=== PATIENT | male | born 1980 | race Caucasian/White ===

== ENCOUNTER 2021-12-11 10:38 | Emergency (ER) | payer SELFPAY ==
--- NOTE | 2021-12-11 10:41 | XR_ITS ---
WS: [id number] XR shoulder LT min 2V* [id number] REASON FOR EXAM: pain FINDINGS: No fracture or focal bone lesion. There is mild malalignment of the acromioclavicular joint. If there has been no recent trauma this ma y be the result of previous low-grade AC separation. The glenohumeral joint is not well demonstrated ( shoulder not well positioned ) on this examination but there does not appear to be anterior dislocation. Posterior dislocation cannot readily excluded i n the appropriate clinical setting. No soft tissue abnormality. XR/XR shoulder LT min 2V* [id number] IMPRESSION: AC joint abnormality as above. No definite acute abnormality of the glenohumeral joint. If there has been acut e or subacute trauma, and clinically warranted, additional imaging would be nee ded to evaluate for posterior dislocation. Axillary or Y-view as needed.
[2021-12-11 10:47] VITALS: BP 145/96; PULSE 67; RESP 16; TEMP 36.3; O2SAT 98; BMI 22.1
[2021-12-11 11:00] VITALS: BP 145/96; PULSE 67; RESP 16; O2SAT 98
--- NOTE | 2021-12-11 11:21 | ED_ITS ---
HPI - Extremity Problem General: Chief complaint: Extremity Problem,Nontraumatic Stated complaint: L shoulder pain Time Seen by Provider: 12/11/21 10:41 Source: patient Mode of arrival: ambulatory Limitations: no limitations History of Present Illness: -year-old male presents emergency room with complaint of left shoulder pain he has a manual labor job he thought he strained his shoulder yesterday when he was still able to move and use it without difficulty this morning woke up with it was much more severe he can move shoulder most range of motion of the exception of abduction demonstrates 1 to ge t the past about 40 to 45 degrees he starts to have significant discomfort. He is not having pain radiating down into the tips of his fingers he does have pain over the trapezius muscle towards the neck. no previous neck or shoulder injury. MD Complaint: joint pain Onset (ago): hour(s) Pain Consistency: constant Location: left and upper extremity (Shoulder) Quality: sharp Radiation: proximal Relieving factors: immobilization Exacerbating factors: range of motion and exertion Associated symptoms: Deny no associated symptoms, arthralgias, chest pain, fever(s), myalgias, rash, short of breath or other Review of Systems Const: Denies: fever(s), chills, body aches, fatigue or malaise Card: Denies: chest pain, palpitations or irregular heart rhythm Resp: Denies: dyspnea, productive cough or non-productive cough GI: Denies: abdominal pain, nausea, vomiting, diarrhea or constipation : Denies: flank pain or dysuria Skin/Breast: Denies: rash [facility] ED PFSH: Medical History (Updated 12/11/21 @ 13:08 by Jeff Gross DO) No significant past medical history Surgical History (Updated 12/11/21 @ 13:08 by Jeff Gross DO) No significant past surgical history Physical Exam Const: COMMON NORMALS: no acute distress GENERAL APPEARANCE: cooperative and comfortable ORIENTATION/CONSCIOUSNESS: Yes awake, Yes oriented to person, Yes oriented to place and Yes oriented to time HENMT: COMMON NORMALS: normocephalic, atraumatic and hearing grossly normal bilaterally HEAD & SCALP: normocephalic and atraumatic Neck/C-Spine: COMMON NORMALS: no JVD Resp: COMMON NORMALS: normal respiratory effort, No retractions, No use of accessory muscles and clear to auscultation bilaterally AUSCULTATION: clear to auscultation bilaterally Cardio: COMMON NORMALS: no JVD, regular rate, regular rhythm and No murmurs present (Cardio) RATE: regular rate RHYTHM: regular rhythm Extremity: COMMON NORMALS: normal to inspection, capillary refill normal, no clubbing, cyanosis or edema, no calf tenderness and no pedal edema OTHER: Limited abduction left shoulder internal and external rotation of the also significant for pain with external rotation of the left shoulder neurovascular intact. Neuro: SENSORIUM/ORIENTATION: Yes oriented to person, Yes oriented to place and Yes oriented to time Skin: COMMON NORMALS: no rashes or lesions noted GENERAL SKIN EXAM: no rashes or lesions noted Course Vital Signs: Vital signs: Vital Signs Temperature 97.4 F L 12/11/21 10:47 Pulse Rate 67 12/11/21 11:00 Respiratory Rate 16 12/11/21 11:00 Blood Pressure 145/96 12/11/21 11:00 Pulse Oximetry 98 12/11/21 11:00 MDM - Extremity (Nontraumatic) Medical Decision Making Appears he has a musculoskeletal strain most likely the rotator cuff. Plain films are unremarkable we will discharge patient in a sling anti-inflammatories as needed and referral to Ortho for further evaluation avoid using the left arm at work until released by Ortho. Medical Records I reviewed the patient's medical records. Lab Data I reviewed the patient's lab results. Radiology Impressions Shoulder X-Ray 12/11/21 10:41 IMPRESSION: AC joint abnormality as above. No definite acute abnormality of the glenohumeral joint. If there has been acute or subacute trauma, and clinically warranted, additional imaging would be needed to evaluate for posterior dislocation. Axillary or Y-view as needed. Discharge Plan Discharge Patient Disposition: Home Clinical Impression: Shoulder pain, left Condition: Stable Prescriptions: New diclofenac sodium 75 mg tablet,delayed release (DR/EC) 75 mg PO Q12H PRN (Reason: pain) Qty: 20 0RF Discharge Orders: Discharge ED (Routine); Ordered 12/11/21 Ordered By: Jeff Gross Discharge Diet: Usual diet Discharge Activity: Limit activity as instructed Patient Instructions: Opioid Safety Activity Restrictions/Additional Instructions: Keep left arm in sling Case management make arrangements for you to follow-up with orthopedics. Coding Level of Care Code ED [facility] for Javon Caldera
--- NOTE | 2021-12-11 11:37 | PC.SOCIAL ---
Addendum entered by Dora Will 12/26/21 14:22: Patient had an appointment scheduled for 12.26.21 with ortho - patient did attend appointment. Addendum entered by Dora Will 12/18/21 17:48: Patient has a follow up appointment scheduled for Sunday, December 26, 2021 at 10:00 with Raghu Hong, clinic will call patient with appointment information. Original Note: Ortho Follow Up Consult received for ortho follow up. Message sent to clinic requesting f/u appointment. Clinic will call patient with appointment date/time.
== END 2021-12-11 11:36 | disposition home or self-care (01) ==
PROVIDERS: Emergency Provider Family Medicine
DX: M25.512 Pain in left shoulder (principal)
CPT/HCPCS: 73030; 99283

== ENCOUNTER → 2021-12-26 08:16 | Outpatient (BNVA) | payer SELFPAY | PROVIDERS: Visit Provider Nurse Practitioner Family | DX: M25.512 Pain in left shoulder (principal) | CPT/HCPCS: 73030 ==